=== PATIENT | male | born 1985 | race Caucasian/White ===

== ENCOUNTER → 2016-06-13 | Outpatient (CLI) | payer MEDICARE ==
[~2016-06-13] MED LIST: CHOL200012 PO; LISI-170 PO; ST JOHNS WORT
== END | disposition home or self-care (01) ==
LOC: PETCFH 11:10
PROVIDERS: ATTEND Nurse Practitioner Family
DX: R68.81 Early satiety (principal); R14.1 Gas pain; R11.0 Nausea
CPT/HCPCS: 78264; A9541